=== PATIENT | male | born 1995 | race Caucasian/White ===

== ENCOUNTER 2024-11-21 16:50 | Emergency (ER) | payer SELFPAY ==
--- OUTSIDE RECORDS SUMMARY | 2024-11-21 16:53 | XMS REPORT | Continuity of Care Document ---
Author Name Unknown Address [address] [facility] [address] [place] [address] [facility] Address [address] [facility] [place] [address] Care Team Providers Care Shipping Receiving Clerk Name Role Phone Ryan Cohen Attending Clinician UnavailHéctor Rogers Attending Clinician Unavailable Taz Don Attending Clinician Jimenez Benitez Attending Clinician Marshall Nix Attending Clinician UnavailHamlet Chambers Attending Clinician UnavailTom Bruno Admitting Clinician Unavailable Physician, No Primary or Family Admitting Clinic isac Unavailable Payers Payer Name Policy Type Policy Number Effective Date Expirati on Date Source Allergies, Adverse Reactions, Alerts Allergy Name Allergy Type Status Severity Reaction(s) Onset Date Inactive Date Treating Clinician Comments Source No Known Allergie s DA Active U - 00:00: 00 [facility] No Known Allergie s DA Active U 09-04 00:00: 00 [facility] No Known Allergie s DA Active U 09-22 00:00: 00 [facility] Encounters Start Date/Time End Date/Time Encounter Type Admission Type Attending [facility] Care Department Encounter ID Source 2024-01-27 11:14:00 2024-01-27 12:31:00 Emergency EM Jorge Cohenew [facility] [id number] 38 [facility] 2023-10-19 10:06:00 2023-10-19 13:41:00 Emergency EM Héctor Troy [facility] [id number] 74 [facility] 2023-09-05 06:34:00 2023-09-05 07:45:00 Emergency EM Arian Taz [facility] [id number] 12 [facility] 2023-07-31 02:04:00 2023-07-31 03:20:00 Emergency EM ArianTaz [facility] [id number] 32 [facility] 2023-05-23 12:39:00 2023-05-23 18:15:00 Emergency EM Cohen Ryan [facility] [id number] 83 [facility] 2022-12-07 11:40:00 2022-12-07 11:51:00 Emergency EM SalbadorJulienmichellelidia [facility] [id number] 44 [facility] 2021-12-10 20:38:00 2021-12-10 22:45:00 Emergency EM [facility] [id number] [facility] 2021-12-04 15:27:00 2021-12-04 16:50:00 Emergency EM Hamlet Oscar [facility] [id number] [facility] Results Test Description Test Time Test Comments Results Result Co mments Source COMPREHENSIVE METABOLIC [id number] 11:01:00* Test Item Value Reference Range Interpretation Comme nts SODIUM (test code = NA) 144.0 mmol/L 133-144 N POTASSIUM (test code = K) 3.0 mmol/L 3.5-5.1 L CHLORIDE (test code = CL) 108 mmol/L 98-107 H CARBON DIOXIDE (test code = CO2) 29 mEq/L 20-31 N ANION GAP (test code = GAP) 7.0 GAP calc 4.0-15.0 N GLUCOSE (test code = GLU) 83 MG/DL 70-110 N BLOOD UREA NITROGEN (test code = BUN) 14 MG/DL 7-18 N GLOMERULAR FILTRATION RATE (test code = GFR) 123 estGFR >60 The Glomerular Filtration Rate is a calculated parameterbased on serum Creatinine, patient age and sex. GFR valuesless than 60 mL/min/1.73 square meters are indicative ofChronic Kidney Disease. Values less than 15 mL/min/1.73square meters indicate Kidney failure. The calculation forGFR is based on the CKD-EPI (2020) calculation. This formulais race indifferent and is the recommended formula for GFRby the National Kidney Foundation for Adults.The GFR will not calculate if the sex is unknown or if thepatient's age is <18 years. CREATININE (test code = CREAT) 0.79 mg/dL 0.55-1.30 N TOTAL PROTEIN (test code = PROT) 6.6 G/DL 6.4-8.2 N ALBUMIN (test code = ALB) 4.3 G/DL 3.2-4.8 N ALBUMIN/GLOBULIN RATIO (test code = A/G) 1.9 RATIO 1.2-2.2 N CALCIUM (test code = CA) 9.3 MG/DL 8.7-10.4 N BILIRUBIN TOTAL (test code = BILT) 0.40 MG/DL 0.00-1.00 N BILIRUBIN DIRECT (test code = BILD) <0.10 MG/DL 0.10-0.30 L BILIRUBIN INDIRECT (test code = BILIND) CALC ADALI MG/DL 0.2-1.3 L SGOT/AST (test code = AST) 20 Unit/L 8-33.9 N SGPT/ALT (test code = ALT) 15 Unit/L 10-49 N ALKALINE PHOSPHATASE TOTAL (test code = ALKP) 54 Unit/L 45-117 N INDEX HEMOLYSIS (test code = HEMINDEX) 1 NORMAL <10 MG Index/DL See_Comment [Automated message] The system which generated this result transmitted reference range: 1 NORMAL. The reference range was not used to interpret this result as normal/abnormal. INDEX ICTERIC (test code = ICTINDEX) NEGATIVE Index/DL See_Comment [Automated message] The system which generated this result transmitted reference range: 1 NORMAL. The reference range was not used to interpret this result as normal/abnormal. INDEX LIPEMIA (test code = LIPINDEX) NEGATIVE Index/DL See_Comment [Automated message] The system which generated this result transmitted reference range: 1 NORMAL. The reference range was not used to interpret this result as normal/abnormal. TROP-I HIGH [id number] 10:57:00* Test Item Value Reference Range Interpretation Comme nts TROP-I HIGH SENSITIVITY (test code = TROPIHS) < 3 ng/L 0-54 N 99th Percentile Upper Reference Limit (URL):Females: 34 ng/LMales: 54 ng/L In order to distinguish acute elevations of high sensitivitytroponin from other clinical conditions, the FourthUniversal Definition of Myocardial Infarction stressesclinical assessment and the demonstration of a riseand/or fall in serial troponin results above the URL. These results were obtained using [employer] IM TnIHreagent. Results from different methodologies should not becompared to one another as quantitative results and URLs mayvary by method. NOTE: a bias of less than or equal to 10% may occur forthese substances: Biotin (3500 ng/mL) Cholesterol (500 mg/dL)Protein Albumin (6 g/dL)Protein Gamma Globulin (2.5 g/dL)Total Protein (12 g/dL) - XR CHEST 2 [id number] 10:47:00 [facility] : 1995 Sex: MFAX: Hilary Suarez Floyd: E St: REG FAX: Tom Epperson MD [phone] [id number] EXAMS: CPT CODE: [id number] XR CHEST 2 V [id number] PROCEDURE INFORMATION: Exam: XR Chest Exam date and time: 10/19/2023 10:35 AM Age: 28 years old Clinical indication: Chest pain TECHNIQUE: Imaging protocol: Radiologic exam of the chest. Views: 2 views. PA and Lateral COMPARISON: DX XR CHEST 1V 09/05/2023 6:59 AM FINDINGS: Lungs: The lungs are clear. Pleural spaces: No pleural effusion. No pneumothorax. Heart/Mediastinum: Cardiomediastinal silhouette is normal in size. Bones/joints: No acute bony finding. IMPRESSION: No evidence for acute cardiopulmonary disease. at 1047 Reported and signed by: Obinna Lou MD CC: Hilary Suarez Dictated Date/Time: 10/19/2023 (3018)Technologist: Adele Vuong Transcribed Date/Time: 10/19/2023 (8346) By: [email or web address] Orig Print D/T: S: 10/19/2023 (2653) MEAGAN Bennett NAME: LACY SMITH [address] PHYS: Hilary [place], [place] [address] : 1995 AGE: 28 SEX: M LOC: EDMUNDO PHONE #: [phone] EXAM DATE: 10/19/2023 STATUS: REG ER FAX #: [phone] RAD NO: DC Dt: PAGE 1 Signed ReportCBC W/AUTO [id number] 10:46:00* Test Item Value Reference Range Interpretation Comme nts WHITE BLOOD CELL (test code = WBC) 10.3 K/mm3 4.1-12.1 N RED BLOOD CELL (test code = RBC) 4.67 M/mm3 3.8-5.5 N HEMOGLOBIN (test code = HGB) 14.0 G/DL 10.6-15.8 N HEMATOCRIT (test code = HCT) 40.4 % 31.8-47.4 N MEAN CELL VOLUME (test code = MCV) 86.5 fL 80.1-101.1 N MEAN CELL HGB (test code = MCH) 30.0 pg 25.3-35.3 N MEAN CELL HGB CONCETRATION ( test code = MCHC) 34.7 G/DL 32.7-35.1 N RED CELL DISTRIBUTION WIDTH (test code = RDW) 12.6 % 12.2-16.4 N RED CELL DISTRIBUTION WIDTH (test code = RDW-SD) 39.6 fL 35.1-43.9 N PLATELET COUNT (test code = PLT) 318 K/mm3 155-337 N MEAN PLATELET VOLUME (test c ode = MPV) 9.8 fL 7.6-10.4 N GRANULOCYTE % (test code = GR%) 70.9 % 37.8-82.6 N IMMATURE GRANULOCYTE % (test code = IG%) 0.2 % 0.0-2.0 N LYMPHOCYTE % (test code = LY%) 22.8 % 14.1-45.4 N MONOCYTE % (test code = MO%) 4.4 % 2.5-11.7 N EOSINOPHIL % (test code = EO%) 1.0 % 0.0-6.2 N BASOPHIL % (test code = BA%) 0.7 % 0.0-2.6 N NUCLEATED RBC % (test code = NRBC%) 0.0 /100WBC% 0.0-1.0 N GRANULOCYTE # (test code = GR#) 7.30 k/mm3 2.0-13.7 N IMMATURE GRANULOCYTE # (test code = IG#) 0.02 K/mm3 0.00-0.03 N LYMPHOCYTE # (test code = LY#) 2.35 K/mm3 0.6-3.8 N MONOCYTE # (test code = MO#) 0.45 K/mm3 0.11-0.59 N EOSINOPHIL # (test code = EO#) 0.10 K/mm3 0.0-0.4 N BASOPHIL # (test code = BA#) 0.07 K/mm3 0.0-0.1 N NUCLEATED RBC # (test code = NRBC#) 0.00 K/mm3 0.00-0.05 N - XR CHEST 1 [id number] 07:26:00 [facility]: JASON SMITHZulma CONTRERAS : 1995 Sex: MFAX: Aicha Mathur NP Floyd: E St: PRE Patient Name: DAVID SMITHSHARON CONTRERAS Unit No: [id number] EXAMS: CPT CODE: [id number] XR CHEST 1 V [id number] PROCEDURE INFORMATION: Exam: XR Chest Exam date and time: 09/05/2023 6:59 AM Age: 28 years old Clinical indication: Chest pain TECHNIQUE: Imaging protocol: Radiologic exam of [facility]. Views: 1 view. COMPARISON: DX XR CHEST 1V 09/06/2016 7:19 PM FINDINGS: Tubes, catheters and devices: None. Lungs: The lungs appear clear. Pleural spaces: No pleural effusion. No pneumothorax. Heart/Mediastinum: Mediastinum and dani appear unremarkable. Bones/joints: No acute bony abnormalityidentified. IMPRESSION: No evidence for an acute cardiopulmonary process. at 0726 Reported and signed by: Enzo Wilkins MD CC: Aicha Mathur [employer] Dictated Date/Time: 09/05/2023 (725)Technologist: LEXIE Pederson(R) Transcribed Date/Time: 09/05/2023 (725) By: [email or web address] Orig Print D/T: S: 09/05/2023 (725) [facility] NAME: LACY SMITH [address] [place] [address] Bl PHYS: Aicha Lopez NP [place], [place] [address] : 1995 AGE: 28 SEX: M LOC: B.ERS PHONE #: [phone] EXAM DATE: 09/05/2023 STATUS: PRE ER FAX #: [phone] RAD NO: DC Dt: PAGE 1 Signed Report Notes Date/Time Note Provider Source 2024-01-27 12:28:00 [facility] ([facility]) EMERGENCY PROVIDER REPORT REPORT#:[id number] REPORT STATUS: Signed DATE:01/27/24 TIME: 8 PATIENT: LACY SMITH UNIT #: [id number] ROOM/BED: : 94 AGE: 28 SEX:M PCP PHYS: Tom Null MD SERVICE AUTHOR: Nirmal Mars APRNNP REP SRV REP SRV TM: 1114 * ALL edits or amendments must be made on the electronic/computer document * Nirmal Mars 01/27/24 1228: HPI-General Illness Free Text HPI Notes Free Text HPI Notes 28-year-old male presents the emergency room with complaints of hemorrhoid pain. Patient denies fever, bleeding, nausea, vomiting or any other symptoms at this time. Patient states that the pain is so severe that he cannot sleep. Patient denies any other pertinent medical history at this time. General Confirmed Patient Yes Initial Greet Date/Time 01/27/24 1114 Presentation Chief Complaint Hemorrhoids Review of Systems ROS Statements All systems rev neg except as marked. Complete sys rev neg except as marked. Free Text ROS Notes Free Text ROS Notes Rectal/hemorrhoid pain Past Medical History - Adult Stated Complaint hemmorhoids Allergies Coded Allergies: No Known Allergies (10/19/23) Home Medications Active Scripts MECLIZINE 25 MG PO TID PRN PRN VERTIGO/DIZZINESS MECLIZINE 25 MG PO TID PRN PRN VERTIGO/DIZZINESS #60 TABS Prov: 05/23/23 cloNIDine 0.1 MG PO Q8H 2 Days #6 TABS Prov: 10/19/23 AMOXICILLIN (AMOXIL) 875 MG PO Q12HR 7 Days #14 TABS Prov: 12/07/22 hydrOXYzine HCL (ATARAX) 50 MG PO TID PRN PRN ANXIETY hydrOXYzine HCL (ATARAX) 50 MG PO TID PRN PRN ANXIETY #20 TABS Prov: 12/04/21 Calculated Suicide Risk (nurs) No risk Additional Medical History none Past Surgical History: Reports: Tonsillectomy. Additional Surgical History none Drug Use Denies recreational drugs Smoking status for patients 13 years old or older: Current every day smoker Physical Exam Vital Signs Vital Signs First Documented: Result Date Time Pulse Ox 100 01/26 1115 B/P 106/67 01/26 1115 B/P Mean 80 01/26 1115 O2 Delivery Room air 01/26 111 Temp 98.2 01/26 1115 Pulse 70 01/26 1115 Resp 16 01/26 111 Last Documented: Result Date Time Pulse Ox 100 01/26 1115 B/P 106/67 01/26 1115 B/P Mean 80 01/26 1115 O2 Delivery Room air 01/26 1115 Temp 98.2 01/26 1115 Pulse 70 01/26 1115 Resp 16 01/26 1115 Review of Vital Signs Reviewed, Vital signs normal Free Text PE Notes Free Text PE Notes General/constitutional: Awake, alert, no acute distress, well appearing, well- developed, well-hydrated, cooperative, nontoxic appearing Head: Atraumatic, normocephalic Eyes: Atraumatic, PERRL, EOMI Ears/nose/throat: Atraumatic, airway patent, mucous membranes moist, pharynx pink and moist Neck: Atraumatic, supple, full range of motion, no swelling, nontender Respiratory/chest: Atraumatic, breath sounds normal, breath sounds equal bilaterally, no respiratory distress Cardiovascular: Heart rate normal, regular rhythm, peripheral circulation intact Abdomen/GI: Atraumatic, soft, nontender, no distention Rectal: Exam chaperoned by JUDD Zaragoza: Approximate 4 cm diameter outer hemorrhoid , no sign of bleeding, no sign of thrombosis, soft, painful to the touch Back: Atraumatic, inspection normal Upper extremity: Atraumatic, inspection normal, full range of motion Lower extremity: Atraumatic, inspection normal, full range of motion Skin: Atraumatic, color normal, no rash, warm, dry, intact Neurologic: Oriented x 3, speech normal, no motor deficits, no sensory deficits Re-Evaluation MDM Free Text MDM Notes Free Text MDM Notes Number and complexity of problems: Low complexity:28-year-old male presents the emergency room with complaints of hemorrhoid pain. Patient denies fever, bleeding, nausea, vomiting or any other symptoms at this time. Patient states that the pain is so severe that he cannot sleep. Patient denies any other pertinent medical history at this time. On exam, approximate 4 cm outer hemorrhoid with no bleeding at this time. Patient will be discharged with medications and follow-up to colorectal surgery for further evaluation and management. Patient understands discharge plan and agrees without objection. Differential diagnosis considered but not limited to: [ ] Hemorrhoids, abscess, cellulitis, prolapsed rectum MDM data: [ ] External documents reviewed: [ ] My EKG interpretation: [N/A] My CT interpretation: [N/A] My x-ray interpretation: [N/A] My ultrasound interpretation: [N/A] Labs reviewed by me: N/A Decision rules/scores evaluated: [N/A] Discussed with: [N/A] Consider admission for: [N/A] Treatment and disposition: [ ] Discussed results with patient, advised when to return to ED, discussed patient education, follow up, prescriptions, and med compliance. Patient verbalizes understanding of all instructions. Code status: Full ED course: Patient is well-appearing, nontoxic, tolerating p.o. Discussed treatment plan, follow-up recommendations as well as return precautions. Patient verbalized understanding and agrees with plan. ED Course Medication(s) Ordered Medication(s) Ordered: Central Nervous System Agents Sig/Elena Start time Last Medication Dose Route Stop Time Status Admin Hydrocodone Bitart/ 1 TAB X1ED STA 01/26 1203 DC 01/26 Acetaminophen PO 01/26 1204 1205 Patient Discharge Departure Vital Signs/Condition Vital Signs First Documented: Result Date Time Pulse Ox 100 01/26 1115 B/P 106/67 01/26 1115 B/P Mean 80 01/26 1115 O2 Delivery Room air 01/26 111 Temp 98.2 01/26 111 Pulse 70 01/26 1115 Resp 16 01/26 1115 Last Documented: Result Date Time Pulse Ox 100 01/26 1115 B/P 106/67 01/26 1115 B/P Mean 80 01/26 1115 O2 Delivery Room air 01/26 111 Temp 98.2 01/26 111 Pulse 70 01/26 111 Resp 16 01/26 111 All vital signs available at the time of this entry have been reviewed. Condition Stable Clinical Impression Clinical Impression Primary Impression: Rectal pain Secondary Impressions: Hemorrhoids Disposition Decision Discharge )( Discharged to Home Yes )( Time 1231 )( Date 01/27/24 Discharge/Care Plan Counseled Regarding Diagnosis, Prescriptions, Need for follow-up, When to return to ED (Auto) Prescriptions Current Visit Scripts DOCUSATE SODIUM (COLACE) 100 MG PO DAILY 14 Days #14 CAPS HYDROCORTISONE (ANUSOL-HC 2.5%) 1 APPLIC RECTAL BID PRN PRN Hemorrhoids 14 Days #30 GM UNTIL RESOLVED traMADol (ULTRAM) 50 MG PO Q6H PRN PRN ACUTE PAIN traMADol (ULTRAM) 50 MG PO Q6H PRN PRN ACUTE PAIN #15 TABS Prescriptions Reviewed Risks, Benefits Patient Instructions ED Hemorrhoids Additional Instructions As we discussed, use medications as prescribed and call Monday morning to make an appointment with a colorectal surgeon for further evaluation and management or possible surgery. Return to the emergency room with severely worsening symptoms including fever, nausea, vomiting, rectal bleeding, or other acutely worsening symptoms as they develop. Please return for chest pain, shortness of breath, feeling like you may pass out, symptoms worsened by exertion, leg swelling, any signs of infection or any other new or concerning symptoms. Please return if you cannot receive follow-up in the next 1 to 2 days. Please note that only your emergent findings were reviewed today. You should contact medical records to get a full report to review in detail with your primary care doctor. Many incidental findings will need outpatient follow-up. Departure Forms [place] PCP LIST Discharge Note I have spoken with the patient and/or caregivers. I have explained the patient's condition, diagnoses and treatment plan based on the information available to me at this time. I have answered the patient's and/or caregiver's questions and addressed any concerns. The patient and/or caregivers have as good an understanding of the patient's diagnosis, condition and treatment plan as can be expected at this point. The vital signs have been stable. The patient's condition is stable and appropriate for discharge from the emergency department. The patient will pursue further outpatient evaluation with the primary care physician or other designated or consulting physician as outlined in the discharge instructions. The patient and/or caregivers are agreeable to this plan of care and follow-up instructions have been explained in detail. The patient and/or caregivers have received these instructions in written format and have expressed an understanding of the discharge instructions. The patient and/or caregivers are aware that any significant change in condition or worsening of symptoms should prompt an immediate return to this or the closest emergency department or a call to 911. Ryan Cohen 01/29/24 1656: Re-Evaluation MDM Free Text MDM Notes Additional Text Pt seen and eval with midlevel Agree with chart as documented unless notes otherwise by me Pt non toxic appearing, tolerating PO Stable for dispo home with closed f/u and return precautions Pt updated and agreeable with plan of care Patient Discharge Departure Discharge/Care Plan Referrals Provider Referral: Sophy Mora MD Notes: Colorectal surgery Address: [address] [place] [address] [address] [place] [address] Resource Referral: [facility] Address: [address] [place] [address] Supervising Physician Note MidLv/Doc Saw Pt 2 I performed a substantive part of the MDM during the patient's E/M visit. I personally made or approved the documented management plan and acknowledge its risk of complications. My (ECG/X-Ray/US/CT) interpretation []. Management/test interpretation discussed with []. at 1616 at 1655 RPT #:[id number] END OF REPORT [facility] 2023-10-19 13:28:00 [facility] ([facility]) EMERGENCY PROVIDER REPORT REPORT#:[id number] REPORT STATUS: Signed DATE:10/19/23 TIME: 1328 PATIENT: LACY SMITH UNIT #: [id number] ROOM/BED: AGE: 28 SEX: M PCP PHYS: Tom Null MD SERVICE AUTHOR: Hilary Suarez APRNNP * ALL edits or amendments must be made on the electronic/computer document * Hilary Suarez 10/19/23 1328: HPI-General Illness Free Text HPI Notes Free Text HPI Notes Patient is a 28-year-old male presenting to the ER for shortness of breath and chest pain, full body aches.. Patient reports he stopped using fentanyl a day and a half ago and the symptoms started then. Patient does report he is able to tolerate fluids and food. No abdominal pain, vomiting, diarrhea, fevers. Patient has no seizure-like activity. General Confirmed Patient Yes Initial Greet Date/Time 10/19/23 1012 Presentation Chief Complaint opiod withdrawal Review of Systems ROS Statements All systems rev neg except as marked. Complete sys rev neg except as marked. Free Text ROS Notes Free Text ROS Notes All negative with the exception of what is noted in the HPI Past Medical History - Adult Stated Complaint FEEL LIKE W/D OPIATES AND DRUGS,SOB,CP Allergies Coded Allergies: No Known Allergies (10/19/23) Home Medications Active Scripts MECLIZINE 25 MG PO TID PRN PRN VERTIGO/DIZZINESS MECLIZINE 25 MG PO TID PRN PRN VERTIGO/DIZZINESS #60 TABS Prov: 05/23/23 AMOXICILLIN (AMOXIL) 875 MG PO Q12HR 7 Days #14 TABS Prov: 12/07/22 hydrOXYzine HCL (ATARAX) 50 MG PO TID PRN PRN ANXIETY hydrOXYzine HCL (ATARAX) 50 MG PO TID PRN PRN ANXIETY #20 TABS Prov: 12/04/21 Additional Medical History none Past Surgical History: Reports: Tonsillectomy. Additional Surgical History none Drug Use Denies recreational drugs Smoking status for patients 13 years old or older: Current every day smoker Physical Exam Vital Signs Vital Signs First Documented: Result Date Time Pulse Ox 100 10/18 1006 B/P 142/89 10/18 1006 B/P Mean 106 10/18 1006 O2 Delivery Room air 10/18 1006 Temp 98.1 10/18 1006 Pulse 94 10/18 1006 Resp 18 10/18 1006 Last Documented: Result Date Time Pulse Ox 98 10/18 1236 B/P 125/76 10/18 1236 B/P Mean 92 10/18 1236 Temp 98.4 10/18 1236 Pulse 98 10/18 1236 Resp 20 10/18 1236 O2 Delivery Room air 10/18 1006 Review of Vital Signs Reviewed Physical Exam General/Const General/Const Awake, Alert, No acute distress, Well appearing, Well developed , Well hydrated, Well nourished, Cooperative, Not toxic appearing Ears/Nose/Throat Ears/Nose/Throat Atraumatic, Airway patent, Mucous membranes moist, Pharynx NL MS Neck Neck Atraumatic, Supple, No meningismus, Full range of motion, No adenopathy, No swelling, Non-tender Resp/Chest Respiratory/Chest Atraumatic, Breath sounds NL, Breath sounds = bilat, No respiratory distress, No rales, No rhonchi, No wheezing, No retractions, No stridor, No chest tenderness, No chest wall deformity, No crepitus Cardiovascular Cardiovascular Heart rate NL, Regular rhythm, Heart sounds NL Abdomen/GI Abdomen/GI Atraumatic, Soft, Non-tender, McBurney's non-tender, No guarding, No rebound, BS normoactive, No distention Skin Skin Atraumatic, Color NL, No rash, Warm Neurologic Neurologic Oriented X3, Speech NL, No motor deficits, No sensory deficits Interpretation Diagnostics Lab Results Interpretation Results Laboratory Tests 10/19/23 1027: [Embedded Image Not Available] Laboratory Tests: 10/18 10/18 10/18 1131 1027 1027 Chemistry Sodium (133 - 144 mmol/L) 144.0 Potassium (3.5 - 5.1 mmol/L) 3.0 L Chloride (98 - 107 mmol/L) 108 H Carbon Dioxide (20 - 31 mEq/L) 29 Anion Gap (4.0 - 15.0 GAP calc) 7.0 BUN (7 - 18 MG/DL) 14 Creatinine (0.55 - 1.30 mg/dL) 0.79 Glomerular Filtr Rate (>60 estGFR) 123 Glucose (70 - 110 MG/DL) 83 Calcium (8.7 - 10.4 MG/DL) 9.3 Total Bilirubin (0.00 - 1.00 MG/DL) 0.40 Direct Bilirubin (0.10 - 0.30 MG/DL) <0.10 L Indirect Bilirubin (0.2 - 1.3 MG/DL) CALC ADALI L AST (8 - 33.9 Unit/L) 20 ALT (10 - 49 Unit/L) 15 Total Alk Phosphatase (45 - 117 Unit/L) 54 Troponin I High Sens (0 - 54 ng/L) < 3 < 3 Total Protein (6.4 - 8.2 G/DL) 6.6 Albumin (3.2 - 4.8 G/DL) 4.3 Albumin/Globulin Ratio (1.2 - 2.2 RATIO) 1.9 Specimen Appearance (1 NORMAL Index/DL) NEGATIVE Specimen Hemolysis (1 NORMAL Index/DL) 1 NORMAL <10 MG Hematology WBC (4.1 - 12.1 K/mm3) 10.3 RBC (3.8 - 5.5 M/mm3) 4.67 Hgb (10.6 - 15.8 G/DL) 14.0 Hct (31.8 - 47.4 %) 40.4 MCV (80.1 - 101.1 fL) 86.5 MCH (25.3 - 35.3 pg) 30.0 MCHC (32.7 - 35.1 G/DL) 34.7 RDW (12.2 - 16.4 %) 12.6 Plt Count (155 - 337 K/mm3) 318 MPV (7.6 - 10.4 fL) 9.8 Gran % (37.8 - 82.6 %) 70.9 Lymph % (Auto) (14.1 - 45.4 %) 22.8 Whiteside % (Auto) (2.5 - 11.7 %) 4.4 Eos % (Auto) (0.0 - 6.2 %) 1.0 Baso % (Auto) (0.0 - 2.6 %) 0.7 Gran # (2.0 - 13.7 k/mm3) 7.30 Lymph # (Auto) (0.6 - 3.8 K/mm3) 2.35 Whiteside # (Auto) (0.11 - 0.59 K/mm3) 0.45 Eos # (Auto) (0.0 - 0.4 K/mm3) 0.10 Baso # (Auto) (0.0 - 0.1 K/mm3) 0.07 Immature Gran % (0.0 - 2.0 %) 0.2 Nucleated RBC % (0.0 - 1.0 /100WBC%) 0.0 Nucleated RBCs # (0.00 - 0.05 K/mm3) 0.00 Recent Impressions: RADIOLOGY - XR CHEST 2 V 10/18 1035 Report Impression - Status: SIGNED Entered: 10/19/2023 1048 IMPRESSION: No evidence for acute cardiopulmonary disease. Impression By: [email or web address] - Obinna Lou MD Re-Evaluation MDM Free Text MDM Notes Free Text MDM Notes Number and complexity: [Moderate complexity] Differential diagnosis considered but not limited to: [Opiate withdrawal, ACS, pneumonia, sepsis, URI, CHRISTIE] MDM data: [ ] External documents reviewed: [N/A] My EKG interpretation: [N/A] My CT interpretation: [N/A] My x-ray interpretation: [N/A] My ultrasound interpretation: [N/A] Labs reviewed by me: [N/A] Decision rules/scores evaluated: [N/A] Discussed with: [N/A] Consider admission for: [N/A] Treatment and disposition:[Patient is alert and oriented, nontoxic. After fluids patient is resting and sleeping in the ER waiting area. When waking up patient reports he only feels slightly better. Reports he is still achy but denies any chest pain or shortness of breath. Vital signs are normal. Patient received Tylenol and IV fluids in the ER. Labs are unremarkable. X without findings. EKG sinus rhythm. Troponins negative x 2. At this time patient be discharged home. He denies any suicidal or homicidal ideation. Clonidine to go home with for the patient. Reviewed thoroughly. Collaborate with Dr. Troy on this patient's plan of care] Code status: Full ED course: Patient is a well-appearing, nontoxic, tolerating p.o. Discussed with [patient]treatment plan, follow-up, recommendations as well as return precautions. Patient verbalizes understanding and agrees with plan ED Course Medication(s) Ordered Medication(s) Ordered: Central Nervous System Agents Sig/Elena Start time Last Medication Dose Route Stop Time Status Admin Acetaminophen 1,000 MG X1ED STA 10/18 1013 DC 07/ PO 10/18 1014 1034 Aspirin 325 MG X1ED STA 10/18 1013 DC 07/ PO 10/18 1014 1034 Electrolytic, Caloric, And Juliann Sig/Elena Start time Last Medication Dose Route Stop Time Status Admin Potassium Chloride 40 MEQ X1ED STA 10/18 1321 DC PO 10/18 1322 Sodium Chloride 1,000 ML X1ED STA 10/18 1013 DC 07/ IV 10/18 1014 1034 Patient Discharge Departure Vital Signs/Condition Vital Signs First Documented: Result Date Time Pulse Ox 100 10/18 1006 B/P 142/89 10/18 1006 B/P Mean 106 10/18 1006 O2 Delivery Room air 10/18 1006 Temp 98.1 10/18 1006 Pulse 94 10/18 1006 Resp 18 10/18 1006 Last Documented: Result Date Time Pulse Ox 98 10/18 1236 B/P 125/76 10/18 1236 B/P Mean 92 10/18 1236 Temp 98.4 10/18 1236 Pulse 98 10/18 1236 Resp 20 10/18 1236 O2 Delivery Room air 10/18 1006 All vital signs available at the time of this entry have been reviewed. Condition Stable, Improved Clinical Impression Clinical Impression Primary Impression: Opioid use Secondary Impressions: Chest pain, Shortness of breath Time of Impression 1332 Disposition Decision Discharge )( Discharged to Home Yes )( Time 1335 )( Date 10/19/23 Discharge/Care Plan Counseled Regarding Diagnosis, Lab results, Imaging studies, Medication changes, Prescriptions, Need for follow-up, When to return to ED (Auto) Prescriptions Current Visit Scripts cloNIDine 0.1 MG PO Q8H 2 Days #6 TABS Prescriptions Reviewed Risks, Benefits, Alternative treatment Patient Instructions Clonidine Oral Tablet, ED Opioid Withdrawal Additional Instructions Your lab work today was normal. Your EKG was normal. Your x-ray of your chest was normal. Your vital signs are normal. At this time we will discharge you home with close follow-up with your PCP. If you not have an a list [facility] for you to follow-up with. I have sent you medication called clonidine which may help with your withdrawal symptoms. I printed you education on opioid withdrawal and clonidine. Increase your oral hydration rest frequently, stay in the cool air, sleep at normal intervals, eat a balanced diet. Come back to the ER if you have significant chest pain, shortness of breath, persistent vomiting, muscle cramps, inability to urinate, thoughts of wanting to kill yourself or kill anyone else. Discharge Note I have spoken with the patient and/or caregivers. I have explained the patient's condition, diagnoses and treatment plan based on the information available to me at this time. I have answered the patient's and/or caregiver's questions and addressed any concerns. The patient and/or caregivers have as good an understanding of the patient's diagnosis, condition and treatment plan as can be expected at this point. The vital signs have been stable. The patient's condition is stable and appropriate for discharge from the emergency department. The patient will pursue further outpatient evaluation with the primary care physician or other designated or consulting physician as outlined in the discharge instructions. The patient and/or caregivers are agreeable to this plan of care and follow-up instructions have been explained in detail. The patient and/or caregivers have received these instructions in written format and have expressed an understanding of the discharge instructions. The patient and/or caregivers are aware that any significant change in condition or worsening of symptoms should prompt an immediate return to this or the closest emergency department or a call to 911. Héctor Troy 10/25/23 0538: Patient Discharge Departure Discharge/Care Plan Referrals [facility] [place] [address] Supervising Physician Note MidLv Saw Pt Alone Level 2: I was consulted about this patient s care by the XOCHITL, but did not directly evaluate the patient. I agree with the plan of care. at [phone] at 6144 RPT #:[id number] END OF REPORT [facility] 2023-10-19 10:14:00 [facility] ([facility]) EMERGENCY PROVIDER REPORT REPORT#:[id number] REPORT STATUS: Signed DATE:10/19/23 TIME: 1014 PATIENT: LACY SMITH UNIT #: [id number] ROOM/BED: AGE: 28 SEX: M PCP PHYS: Tom Null MD SERVICE DT: AUTHOR: Hilary Suarez * ALL edits or amendments must be made on the electronic/computer document * Provider in Triage - Adult Provider in Triage Initial Greet Date/Time 10/19/23 1012 Greet Note I have greeted and performed a focused rapid initial assessment of this patient. A comprehensive ED assessment and evaluation of the patient, analysis of all test results, and completion of the medical decision-making process will be conducted by additional ED providers. MSE Not Complete The medical screening exam is not complete. Further evaluation and/or treatment is required. The patient will be re-directed to the emergency department. Free Text PIT Notes Free Text PIT Notes Patient is a 28-year-old male presenting to the ER for shortness of breath and chest pain. Patient reports he stopped using fentanyl a day and a half ago and the symptoms started then. PMH-Provider in Triage Stated Complaint FEEL LIKE W/D OPIATES AND DRUGS,SOB,CP Allergies Coded Allergies: No Known Allergies (10/19/23) Home Medications Active Scripts MECLIZINE 25 MG PO TID PRN PRN VERTIGO/DIZZINESS MECLIZINE 25 MG PO TID PRN PRN VERTIGO/DIZZINESS #60 TABS Prov: 05/23/23 AMOXICILLIN (AMOXIL) 875 MG PO Q12HR 7 Days #14 TABS Prov: 12/07/22 hydrOXYzine HCL (ATARAX) 50 MG PO TID PRN PRN ANXIETY hydrOXYzine HCL (ATARAX) 50 MG PO TID PRN PRN ANXIETY #20 TABS Prov: 12/04/21 Additional Medical History none Past Surgical History: Reports: Tonsillectomy. Additional Surgical History none Patient History FATHER Condition: Family History: Unknown MOTHER Condition: Family History: Unknown Drug Use Denies recreational drugs at 1015 RPT #:[id number] END OF REPORT [facility] 2023-09-05 07:39:00 [facility] ([facility]) EMERGENCY PROVIDER REPORT REPORT#:[id number] REPORT STATUS: Signed DATE:09/05/23 TIME: 0739 PATIENT: LACY SMITH UNIT #: [id number] ROOM/BED: AGE: 28 SEX: M PCP PHYS: Tom Null MD SERVICE AUTHOR: Taz Don DO * ALL edits or amendments must be made on the electronic/computer document * HPI-Chest Pain 40 and Over General Initial Greet Date/Time 09/05/23 0650 Provider in Triage HPI Chief Complaint Chest pain PE General/Const No acute distress Respiratory/Chest No respiratory distress Presentation Chief Complaint Chest pain Sudden in Onset? No Free Text HPI Notes Free Text HPI Notes Patient presents with a chief complaint of ongoing chest pain. States he has been having the same pain for the last 2 years. Patient denies any recent injury. Has no known medical history. Takes no prescription medications. However patient did states that he needs Valium? Patient was unable to tell me why he came in today if pain has been ongoing for the last 2 years. Risk-Chest Pain 40 and Over Risk Stratification )( Coronary Artery Disease Risk factors reviewed )( Thoracic Aortic Dissection Risk factors reviewed )( Pulmonary Embolism Risk factors reviewed Review of Systems ROS Statements All systems rev neg except as marked. Focused Review of Systems Cardiovascular Reports: Chest pain. Past Medical History - Adult Stated Complaint CHEST PAIN Allergies Coded Allergies: No Known Allergies (09/05/23) Home Medications Active Scripts MECLIZINE 25 MG PO TID PRN PRN VERTIGO/DIZZINESS MECLIZINE 25 MG PO TID PRN PRN VERTIGO/DIZZINESS #60 TABS Prov: 05/23/23 AMOXICILLIN (AMOXIL) 875 MG PO Q12HR 7 Days #14 TABS Prov: 12/07/22 hydrOXYzine HCL (ATARAX) 50 MG PO TID PRN PRN ANXIETY hydrOXYzine HCL (ATARAX) 50 MG PO TID PRN PRN ANXIETY #20 TABS Prov: 12/04/21 Additional Medical History none Past Surgical History: Reports: Tonsillectomy. Additional Surgical History none Drug Use Denies recreational drugs Smoking status for patients 13 years old or older: Current every day smoker Physical Exam Vital Signs Vital Signs First Documented: Result Date Time Pulse Ox 100 09/04 0639 B/P 111/75 09/04 0639 B/P Mean 87 09/04 0639 O2 Delivery Room air 09/04 0639 Temp 97.5 09/04 0639 Pulse 95 09/04 0639 Resp 14 09/04 0639 Last Documented: Result Date Time Pulse Ox 100 09/04 0730 B/P 121/73 09/04 0730 B/P Mean 91 09/04 0730 Pulse 92 09/04 0730 O2 Delivery Room air 09/04 0639 Temp 97.5 09/04 0639 Resp 14 09/04 0639 Review of Vital Signs Reviewed Basic Physical Exam Basic PE HEAD: Atraumatic/NC, EYES: PERRL, conj clear, ENT: Membranes moist, NECK: Supple, EXT: No gross abnormality, SKIN: No rashes, warm/dry, NEURO: alert oriented, NEURO: gross movement NL Interpretation Diagnostics Lab Results Interpretation Results Recent Impressions: RADIOLOGY - XR CHEST 1 V 09/04 658 Report Impression - Status: SIGNED Entered: 09/05/2023725 IMPRESSION: No evidence for an acute cardiopulmonary process. Impression By: [email or web address] - Enzo Wilkins MD Re-Evaluation MDM Free Text MDM Notes Additional Text Medical decision making Number and complexity of problems multiple Differential diagnosis: MDM data External documents reviewed: My EKG interpretation normal sinus rhythm no acute ischemic changes rate of 92 time is [address] interpretation N/A My x-ray interpretation N/A My ultrasound interpretation: N/A Labs reviewed by me; Decision rules/scores evaluated Discussed with; N/A I considered admission for: N/A Treatment and disposition: Patient refused workup. Will recommend follow-up as outpatient. ED course: Patient is refusing workup. Told nurse he will not allow blood draw. Shared decision making: Discussed discharge follow-up and return instructions. CODE STATUS: Full code ED Course Medication(s) Ordered Medication(s) Ordered: Central Nervous System Agents Sig/Elena Start time Last Medication Dose Route Stop Time Status Admin Aspirin 325 MG X1ED STA 09/04 0731 DC PO 09/04 0732 Aspirin 325 MG X1ED STA 09/04 0656 CAN PO 09/04 0657 Patient Discharge Departure Vital Signs/Condition Vital Signs First Documented: Result Date Time Pulse Ox 100 09/04 0639 B/P 111/75 09/04 0639 B/P Mean 87 09/04 0539 O2 Delivery Room air 09/04 638 Temp 97.5 09/04 638 Pulse 95 09/04 0539 Resp 14 09/04 638 Last Documented: Result Date Time Pulse Ox 100 09/04 729 B/P 121/73 09/04 0730 B/P Mean 91 09/04 07 Pulse 92 09/04 729 O2 Delivery Room air 09/04 638 Temp 97.5 09/04 0539 Resp 14 09/04 638 All vital signs available at the time of this entry have been reviewed. Clinical Impression Clinical Impression Primary Impression: Chest pain Disposition Decision Discharge )( Discharged to Home Yes )( Time 07 )( Date 09/05/23 Discharge/Care Plan Patient Instructions ED Chest Pain, Uncertain Cause [facility]errals [facility] Address: [address] [place] [address] [place] [address] Discharge Note I have spoken with the patient and/or caregivers. I have explained the patient's condition, diagnoses and treatment plan based on the information available to me at this time. I have answered the patient's and/or caregiver's questions and addressed any concerns. The patient and/or caregivers have as good an understanding of the patient's diagnosis, condition and treatment plan as can be expected at this point. The vital signs have been stable. The patient's condition is stable and appropriate for discharge from the emergency department. The patient will pursue further outpatient evaluation with the primary care physician or other designated or consulting physician as outlined in the discharge instructions. The patient and/or caregivers are agreeable to this plan of care and follow-up instructions have been explained in detail. The patient and/or caregivers have received these instructions in written format and have expressed an understanding of the discharge instructions. The patient and/or caregivers are aware that any significant change in condition or worsening of symptoms should prompt an immediate return to this or the closest emergency department or a call to 911. at 1017 RPT #:[id number] END OF REPORT [facility] 2023-09-05 06:55:00 [facility] ([facility]) EMERGENCY PROVIDER REPORT REPORT#:[id number] REPORT STATUS: Signed DATE:09/05/23 TIME: 0655 PATIENT: LACY SMITH UNIT #: [id number] ROOM/BED: AGE: 28 SEX: M PCP PHYS: No Primary or Family Physician SERVICE DT: AUTHOR: Aicha Mathur REAL ESTATE BROKER * ALL edits or amendments must be made on the electronic/computer document * Provider in Triage - Adult Provider in Triage Initial Greet Date/Time 09/05/23 0650 Greet Note I have greeted and performed a focused rapid initial assessment of this patient. A comprehensive ED assessment and evaluation of the patient, analysis of all test results, and completion of the medical decision-making process will be conducted by additional ED providers. HPI Chief Complaint Chest pain PE General/Const No acute distress Respiratory/Chest No respiratory distress MSE Not Complete The medical screening exam is not complete. Further evaluation and/or treatment is required. The patient will be re-directed to the emergency department. PMH-Provider in Triage Stated Complaint CHEST PAIN Allergies Coded Allergies: No Known Allergies (09/05/23) Home Medications Active Scripts MECLIZINE 25 MG PO TID PRN PRN VERTIGO/DIZZINESS MECLIZINE 25 MG PO TID PRN PRN VERTIGO/DIZZINESS #60 TABS Prov: 05/23/23 AMOXICILLIN (AMOXIL) 875 MG PO Q12HR 7 Days #14 TABS Prov: 12/07/22 hydrOXYzine HCL (ATARAX) 50 MG PO TID PRN PRN ANXIETY hydrOXYzine HCL (ATARAX) 50 MG PO TID PRN PRN ANXIETY #20 TABS Prov: 12/04/21 Additional Medical History none Past Surgical History: Reports: Tonsillectomy. Additional Surgical History none Patient History FATHER Condition: Family History: Unknown MOTHER Condition: Family History: Unknown Drug Use Denies recreational drugs Smoking status: Smoking status for patients 13 years old or older: Current every day smoker at 0656 RPT #:[id number] END OF REPORT [facility] 2023-05-23 17:26:00 [facility] ([facility]) EMERGENCY PROVIDER REPORT REPORT#:[id number] REPORT STATUS: Signed DATE:05/23/23 TIME: 1725 PATIENT: LACY SMITH UNIT #: [id number] ROOM/BED: AGE: 28 SEX: M PCP PHYS: No Primary or Family Physician SERVICE AUTHOR: Susie Bonner FOREIGN COLLECTION CLERK-PATIENT FINANCIAL SERVICES MANAGER * ALL edits or amendments must be made on the electronic/computer document * Susie Bonner 05/23/23 1726: HPI-General Illness Free Text HPI Notes Free Text HPI Notes 28-year-old male presents with sharp stabbing pain in the right ear that has been ongoing for 6 months. He states it is intermittent and it came back a couple days ago. He states the pain radiates to his jaw and down the right side of his neck. He also states he has had a headache for several days as well. Denies fever, nausea, vomiting, trauma. General Confirmed Patient Yes Patient Type New patient Initial Greet Date/Time 05/23/23 1239 Presentation Chief Complaint Ear pain Review of Systems ROS Statements All systems rev neg except as marked. Past Medical History - Adult Stated Complaint EAR PAIN Allergies Coded Allergies: No Known Allergies (09/22/16) Home Medications Active Scripts AMOXICILLIN (AMOXIL) 875 MG PO Q12HR 7 Days #14 TABS Prov: 12/07/22 hydrOXYzine HCL (ATARAX) 50 MG PO TID PRN PRN ANXIETY hydrOXYzine HCL (ATARAX) 50 MG PO TID PRN PRN ANXIETY #20 TABS Prov: 12/04/21 Additional Medical History none Past Surgical History: Reports: Tonsillectomy. Additional Surgical History none Drug Use Denies recreational drugs Smoking status for patients 13 years old or older: Current every day smoker Physical Exam Vital Signs Vital Signs First Documented: Result Date Time Pulse Ox 97 05/23 1257 B/P 118/81 05/23 1257 B/P Mean 93 05/23 1257 O2 Delivery Room air 05/23 1257 Temp 98.4 05/23 1257 Pulse 86 05/23 1257 Resp 05/23 1257 Last Documented: Result Date Time Pulse Ox 97 05/23 1257 B/P 118/81 05/23 1257 B/P Mean 93 05/23 1257 O2 Delivery Room air 05/23 1257 Temp 98.4 05/23 1257 Pulse 86 05/23 1257 Resp 18 05/23 1257 Review of Vital Signs Reviewed, Vital signs normal Basic Physical Exam Basic PE GEN: Well appearing/NAD, HEAD: Atraumatic/NC, EYES: PERRL, conj clear, ENT: Membranes moist, NECK: Supple, RESP: No resp distress, CV: Reg rate rhythm, ABD: Soft/non-tender, EXT: No gross abnormality, SKIN: No rashes, warm/ dry, NEURO: alert oriented, NEURO: gross movement NL, PSYCH: NL thought content Physical Exam Ears/Nose/Throat Ears/Nose/Throat Atraumatic, Airway patent, Mucous membranes moist, Pharynx NL, No peritonsillar abscess, No pooling of secretions, No trismus, Nose exam NL , No sinus tenderness, No facial swelling, Gums/dentition NL Right Ear/Mastoid Fluid behind TM clear. Negative: Tympanic membrane red, Tympanic membrane bulging, Tympanic memb perforated, Tympanic memb retracted, Bullous myringitis, Fluid behind TM purulent, External canal red, External frame tender, Ext canal foreign body, Discharge purulent, Discharge bloody, Ext canal cerumen impact, Mastoid area red, Mastoid area tender, Jefferson red, Jefferson tender. Resp/Chest Respiratory/Chest Atraumatic, Breath sounds NL, Breath sounds = bilat Cardiovascular Cardiovascular Heart rate NL, Heart sounds NL Lymphatic Lymphatic No gross adenopathy Re-Evaluation MDM Free Text MDM Notes Free Text MDM Notes Differential diagnosis considered but not limited to: [otitis media, otitis externa, vertigo] MDM data External documents reviewed N/A My EKG interpretation: N/A My CT interpretation: N/A My x-ray interpretation: N/A Labs reviewed by me and are significant for: N/A Decision rules/scores evaluated: N/A Discussed with: N/A Consider admission for: N/A ED course: [28-year-old male presents with sharp stabbing pain in the right ear that has been ongoing for 6 months. He states it is intermittent and it came back a couple days ago. He states the pain radiates to his jaw and down the right side of his neck. He also states he has had a headache for several days as well. Denies fever, nausea, vomiting, trauma. Patient given meclezine and instructed to folow up with an ENT.] Patient is well-appearing, nontoxic, tolerating p.o. Discussed [follow up and discharge] treatment plan, follow-up recommendations as well as return precautions. Patient verbalized understanding and agrees with plan. Shared decision making: Utilized for treatment plan ED Course Medication(s) Ordered Medication(s) Ordered: Central Nervous System Agents Sig/Elena Start time Last Medication Dose Route Stop Time Status Admin Ketorolac 30 MG X1ED STA 05/23 1734 DC 05/23 Tromethamine IM 05/23 1735 1753 Eye, Ear, Nose And Throat (Een Sig/Elena Start time Last Medication Dose Route Stop Time Status Admin Dexamethasone Sodium 8 MG X1ED STA 05/23 1734 DC 05/23 Phosphate IM 05/23 1735 1752 Gastrointestinal Drugs Sig/Elena Start time Last Medication Dose Route Stop Time Status Admin Meclizine HCl 25 MG X1ED STA 05/23 1734 DC 05/23 PO 05/23 1735 1752 Meclizine HCl 25 MG X1ED STA 05/23 1301 DC PO 05/23 1302 Patient Discharge Departure Vital Signs/Condition Vital Signs First Documented: Result Date Time Pulse Ox 97 05/23 1257 B/P 118/81 05/23 1257 B/P Mean 93 05/23 1257 O2 Delivery Room air 05/23 1257 Temp 98.4 05/23 1257 Pulse 86 05/23 1257 Resp 18 05/23 1257 Last Documented: Result Date Time Pulse Ox 97 05/23 1257 B/P 118/81 05/23 1257 B/P Mean 93 05/23 1257 O2 Delivery Room air 05/23 1257 Temp 98.4 05/23 1257 Pulse 86 05/23 1257 Resp 18 05/23 1257 All vital signs available at the time of this entry have been reviewed. Condition Stable Clinical Impression Clinical Impression Primary Impression: Ear pain, right Disposition Decision Discharge )( Discharged to Home Yes )( Time 1729 )( Date 05/23/23 Discharge/Care Plan Counseled Regarding Diagnosis, Need for follow-up, When to return to ED (Auto) Prescriptions Current Visit Scripts MECLIZINE (ANTIVERT) 25 MG PO TID PRN PRN VERTIGO/DIZZINESS MECLIZINE (ANTIVERT) 25 MG PO TID PRN PRN VERTIGO/DIZZINESS #60 TABS Patient Instructions ED Earache, No Infection (Adult) Additional Instructions You are seen today for chronic ear pain in your right ear. You have been prescribed meclizine and instructed to follow-up with a ENT. There is several listed in your discharge paperwork along with a primary care provider. Meclizine can be used for dizziness, nausea, and sometimes ear pain. If symptoms worsen please return to the emergency department. Departure Forms WORK/SCHOOL EXCUSE-CAREGIVER Discharge Note I have spoken with the patient and/or caregivers. I have explained the patient's condition, diagnoses and treatment plan based on the information available to me at this time. I have answered the patient's and/or caregiver's questions and addressed any concerns. The patient and/or caregivers have as good an understanding of the patient's diagnosis, condition and treatment plan as can be expected at this point. The vital signs have been stable. The patient's condition is stable and appropriate for discharge from the emergency department. The patient will pursue further outpatient evaluation with the primary care physician or other designated or consulting physician as outlined in the discharge instructions. The patient and/or caregivers are agreeable to this plan of care and follow-up instructions have been explained in detail. The patient and/or caregivers have received these instructions in written format and have expressed an understanding of the discharge instructions. The patient and/or caregivers are aware that any significant change in condition or worsening of symptoms should prompt an immediate return to this or the closest emergency department or a call to 911. Ryan Cohen 05/30/23 0427: Re-Evaluation MDM Free Text MDM Notes Additional Text Pt seen and eval with midlevel Agree with chart as documented unless noted otherwise by me Pt well appearing, non toxic Taking PO and ambulatory in ED Stable for dispo home with close f/u Pt agreeable with plan Patient Discharge Departure Discharge/Care Plan Referrals Provider Referral: Phyllis Baker MD Address: [address] [facility] [address] [place] [address] Provider Referral: Winnie Peres MD Address: [address] [facility] [address] [place] [address] [facility] Address: [address] [place] [address] Provider Referral: Ziggy Alan MD Address: [address] [place] [address] [address] [place] [address] Provider Referral: Sam Hawley MD Address: [address] [facility] [address] [place] [address] Supervising Physician Note MidLv/Doc Saw Pt 2 The PA/REAL ESTATE BROKER has seen the patient and I have performed this visit along with the involvement of the PA/REAL ESTATE BROKER. I agree with the PA/drilling fluids specialist findings and plan. I have performed all aspects of MDM as documented including: evaluation of the patient/ patient's condition(s), review and analysis of available data, and determination of risk of patient management decisions. at 0400 at 0427 RPT #:[id number] END OF REPORT [facility] 2022-12-07 11:46:00 [facility] ([facility]) EMERGENCY PROVIDER REPORT REPORT#:[id number] REPORT STATUS: Signed DATE:12/07/22 TIME: 1146 PATIENT: LACY SMITH UNIT #: [id number] ROOM/BED: AGE: 27 SEX: M PCP PHYS: No Primary or Family Physician SERVICE AUTHOR: Dejan Terry * ALL edits or amendments must be made on the electronic/computer document * Dejan Terry 12/07/22 1146: HPI-General Illness Free Text HPI Notes Free Text HPI Notes Patient is 27-year-old male presents with right earache. Reports symptoms times few days. Has had multiple earaches in the past. Denies fever, chills, nausea, vomiting, chest pain, shortness of breath. Symptoms aggravated by nothing specific. General Initial Greet Date/Time 12/07/22 1145 Presentation Chief Complaint Ear pain Review of Systems ROS Statements All systems rev neg except as marked. Past Medical History - Adult Stated Complaint EAR INFECTION Allergies Coded Allergies: No Known Allergies (09/22/16) Home Medications Active Scripts hydrOXYzine HCL (ATARAX) 50 MG PO TID PRN PRN ANXIETY hydrOXYzine HCL (ATARAX) 50 MG PO TID PRN PRN ANXIETY #20 TABS Prov: 12/04/21 Past Surgical History: Reports: Tonsillectomy. Physical Exam Vital Signs Vital Signs First Documented: Result Date Time Pulse Ox 96 12/07 1144 B/P 133/86 12/07 1144 B/P Mean 101 12/07 1144 O2 Delivery Room air 12/07 1144 Temp 98.4 12/07 1144 Pulse 83 12/07 1144 Resp 16 12/07 1144 Last Documented: Result Date Time Pulse Ox 96 12/07 1144 B/P 133/86 12/07 1144 B/P Mean 101 12/07 1144 O2 Delivery Room air 12/07 1144 Temp 98.4 12/07 1144 Pulse 83 12/07 1144 Resp 16 12/07 1144 Review of Vital Signs Reviewed Free Text PE Notes Free Text PE Notes General/Const: Awake, Alert, No acute distress, Well appearing, Well developed, Well hydrated, Well nourished, Cooperative, Not toxic appearing Head: Atraumatic, Normocephalic ENT: Left TM dull, intact, small effusion, right TM opaque, bulging, intact with moderate effusion, extremities pink and moist Neck: Atraumatic, Supple Resp/Chest: Breath sounds NL, Breath sounds = bilat, No respiratory distress, No rales, No rhonchi, No wheezing, No retractions, No stridor, No chest tenderness, No chest wall deformity, No crepitus Cardiovascular: Heart rate NL, Regular rhythm, Heart sounds NL, No gallop, No murmurs, No rubs, Cap refill not delayed, Peripheral circulation NL, Pulses = bilaterally, MS: All extremities with Normal range of motion, no gross deformity, no swelling , no pulse deficits MS Back: Atraumatic, No CVA tenderness Skin: Atraumatic, Color NL, No rash, Warm, Dry, Intact, Turgor NL, No swelling Neurologic: Oriented X3, Speech NL, No motor deficits, No sensory deficits Psychiatric: Affect NL, Mood NL Re-Evaluation MDM Free Text MDM Notes Free Text MDM Notes Number and complexity of problems [] Differential diagnosis considered but not limited to: Otitis media MDM data External documents reviewed N/A My EKG interpretation: N/A My CT interpretation: N/A My x-ray interpretation: N/A Labs reviewed by me and are significant for: N/A Decision rules/scores evaluated: N/A Discussed with: N/A Consider admission for: N/A Treatment and disposition: Patient evaluated for earache, found otitis media, plan for outpatient treatment ED course: Patient is well-appearing, nontoxic, tolerating p.o. Discussed treatment plan, follow-up recommendations as well as return precautions. Patient verbalized understanding and agrees with plan. Shared decision making: Utilized for treatment plan Patient Discharge Departure Vital Signs/Condition Vital Signs First Documented: Result Date Time Pulse Ox 96 12/07 1144 B/P 133/86 / 1144 B/P Mean 101 / 1144 O2 Delivery Room air 12/07 1144 Temp 98.4 12/07 1144 Pulse 83 12/07 1144 Resp 16 12/07 1144 Last Documented: Result Date Time Pulse Ox 96 12/07 1144 B/P 133/86 / 1144 B/P Mean 101 / 1144 O2 Delivery Room air 12/07 1144 Temp 98.4 12/07 1144 Pulse 83 12/07 1144 Resp 16 12/07 1144 All vital signs available at the time of this entry have been reviewed. Condition Stable Clinical Impression Clinical Impression Primary Impression: Acute otitis media, right Disposition Decision Discharge )( Discharged to Home Yes )( Time 1147 )( Date 12/07/22 Discharge/Care Plan Counseled Regarding Diagnosis, Prescriptions, Need for follow-up, When to return to ED (Auto) Prescriptions Current Visit Scripts AMOXICILLIN (AMOXIL) 875 MG PO Q12HR 7 Days #14 TABS Patient Instructions ED Otitis Media Adult Additional Instructions Use Flonase 1 spray in each nostril twice daily. Drink plenty of fluids. Medication as prescribed. Take Tylenol or Motrin per bottle instructions as needed for pain. Follow-up with primary care provider in 2 to 3 days. Return to ER for any worsening or concerning symptoms. Discharge Note I have spoken with the patient and/or caregivers. I have explained the patient's condition, diagnoses and treatment plan based on the information available to me at this time. I have answered the patient's and/or caregiver's questions and addressed any concerns. The patient and/or caregivers have as good an understanding of the patient's diagnosis, condition and treatment plan as can be expected at this point. The vital signs have been stable. The patient's condition is stable and appropriate for discharge from the emergency department. The patient will pursue further outpatient evaluation with the primary care physician or other designated or consulting physician as outlined in the discharge instructions. The patient and/or caregivers are agreeable to this plan of care and follow-up instructions have been explained in detail. The patient and/or caregivers have received these instructions in written format and have expressed an understanding of the discharge instructions. The patient and/or caregivers are aware that any significant change in condition or worsening of symptoms should prompt an immediate return to this or the closest emergency department or a call to 911. Jimenez Siu 12/09/22 0939: Patient Discharge Departure Discharge/Care Plan Referrals Resource Referral: [facility] Address: [address] [place] [address] Provider Referral: Ziggy Gutierrez MD Address: [address] [place] [address] [address] [place] [address] Supervising Physician Note MidLv Saw Pt Alone I have reviewed the PA/REAL ESTATE BROKER's note and plan of care. I was available for consultation as needed at all times during the patient's visit in the emergency department. I agree with the clinical impression, plan and disposition. at 1621 at 0939 RPT #:[id number] END OF REPORT [facility] 2021-12-10 21:48:00 [facility] ([facility] or a [facility] of [facility] emergency provider report report#:[id number] report status: signed date:12/10/21 time: 2147 patient: lacy smith unit #: [id number] room/bed: age: 26 sex: m pcp phys: no primary or family physician service dt: 12/10/21 author: mohan tsang np * all edits or amendments must be made on the electronic/computer document * mohan tsang 12/10/212147: hpi-general illness free text hpi notes free text hpi notes 26-year-old male presents to er complaining of a lot of nonradiating chest pain due to anxiety and depression that started 4 hours ago and has gradually worsened. patient reports history of being seen in emergency room for chest pain due to anxiety and was prescribed valium and states "the benzos are what helps my anxiety and takes my chest pain away". patient reports psychiatric appointment next week to address his anxiety and depression. patient reports he smokes cigarettes daily, denies etoh consumption, or illicit drug use. patient denies shortness of breath, nausea, vomiting, diarrhea, cough, numbness or tingling to extremities. patient reports pmhx anxiety and depression, but denies surgical history or consumption of daily prescribed medications. general confirmed patient yes initial greet date/time 12/10/212054 presentation chief complaint cp due to anxiety hx obtained from patient sudden in onset? yes (approx 4 hrs ago) review of systems ros statements all systems rev neg except as marked. free text ros notes free text ros notes constitutional: no fever, fatigue or weight loss. skin: no rash. hent: no congestion, ear pain, or sore throat. eyes: no recent vision problems or eye pain. endocrine: no thyroid problems. no polyuria or polydipsia. cardiovascular: non-radiating chest pain d/t anxiety. denies syncope respiratory: no cough, shortness of breath, congestion, or wheezing. gastrointestinal: no abdominal pain, nausea, vomiting, bloody stools or diarrhea. genitourinary: no dysuria, hematuria, urgency, frequency, or pressure. musculoskeletal: no joint pain or swelling lymphatic: no swollen glands. neurologic: no seizures. no headache, focal weakness or sensory changes. hematologic: no unusual bruising or bleeding. psychiatric: reports depression and anxiety. past medical history - adult stated complaint pui-chest pain-muscle pain-abdominal pain..... allergies coded allergies: no known allergies (09/22/16) home medications active scripts hydroxyzine hcl (atarax) 50 mg po tid prn prn anxiety hydroxyzine hcl (atarax) 50 mg po tid prn prn anxiety #20 tabs prov: 12/04/21 review of nursing notes rev avail, and agree additional medical history none past surgical history: reports: tonsillectomy. additional surgical history none drug use denies recreational drugs physical exam vital signs vital signs first documented: result date time pulse ox 99 12/105 b/p 145/94 12/10 2254 b/p mean 111 12/10 2254 o2 delivery room air 12/10 2254 temp 37.0 12/10 2254 pulse 91 12/10 2254 resp 22 12/10 2254 last documented: result date time pulse ox 99 12/10 2254 b/p 145/94 12/105 b/p mean 111 12/10 2254 o2 delivery room air 12/10 2254 temp 37.0 12/10 2254 pulse 91 12/10 2254 resp 12/10 review of vital signs reviewed, vital signs normal free text pe notes free text pe notes general: no acute distress, non-toxic appearance. head: normal with no signs of head trauma. eyes: perrla, eomi, conjunctiva normal, no discharge. ears: hearing grossly intact. nose: normal. bilateral nares patent. no epistaxis or rhinorrhea throat: oropharynx is normal. no erythema or exudate. neck: normal range of motion, no tenderness, supple, no lymphadenopathy, no adenopathy, no jvd. chest: clear breath sounds bilaterally. no wheezes, rales, or rhonchi. cardiac: regular rate and rhythm. s1 and s2, without murmurs, gallops, or rubs. vascular: no edema. peripheral pulses normal and equal in all extremities. abdomen: normal and soft with no tenderness, no masses or pulsatile masses visualized or palpated. gastrointestinal: bowel sounds normal throughout all quadrants genitourinary: normal, no tenderness lympathtic: no lymphadenopathy noted. musculoskeletal: good range of motion of all major joints. extremities without clubbing, cyanosis or edema. neurological: alert and oriented x 3. no focal sensory or strength deficits. speech normal. follows commands appropriately. psychiatric: patient appears anxious but w/normal affect skin: normal appearance with no rashes or lesions. re-evaluation mdm ed course medication(s) ordered medication(s) ordered: central nervous system agents sig/elena start time last medication dose route stop time status admin diazepam 5 mg x1ed sta 12/10 2224 dc 12/10 po 12/10 2225 225 patient discharge departure vital signs/condition vital signs first documented: result date time pulse ox 99 12/10 2254 b/p 145/94 12/10 2254 b/p mean 111 12/10 2254 o2 delivery room air 12/10 2254 temp 37.0 12/10 2254 pulse 91 12/10 2254 resp 12/10 last documented: result date time pulse ox 99 12/10 2254 b/p 145/94 12/10 2255 b/p mean 111 12/10 2254 o2 delivery room air 12/10 2254 temp 37.0 12/10 2254 pulse 91 12/10 2254 resp 22 12/10 2254 all vital signs available at the time of this entry have been reviewed. clinical impression clinical impression primary impression: anxiety secondary impressions: anxiety attack disposition decision discharge )( discharged to home yes )( time 2228 )( date 12/10/21 discharge/care plan counseled regarding diagnosis, need for follow-up, when to return to ed patient instructions ed panic attack additional instructions please keep your scheduled appointment with psychiatry for next week as informed thank you discharge note i have spoken with the patient and/or caregivers. i have explained the patient's condition, diagnoses and treatment plan based on the information available to me at this time. i have answered the patient's and/or caregiver's questions and addressed any concerns. the patient and/or caregivers have as good an understanding of the patient's diagnosis, condition and treatment plan as can be expected at this point. the vital signs have been stable. the patient's condition is stable and appropriate for discharge from the emergency department. the patient will pursue further outpatient evaluation with the primary care physician or other designated or consulting physician as outlined in the discharge instructions. the patient and/or caregivers are agreeable to this plan of care and follow-up instructions have been explained in detail. the patient and/or caregivers have received these instructions in written format and have expressed an understanding of the discharge instructions. the patient and/or caregivers are aware that any significant change in condition or worsening of symptoms should prompt an immediate return to this or the closest emergency department or a call to [facility]. marshall gutierrez 12/11/21 1837: patient discharge departure discharge/care plan [facility]errals [facility] 1[facility]2 days address: [address] [place] [address] electronically signed by mohan tsang np on 12/11/21 at 1308 electronically signed by marshall gutierrez md on 12/11/21 at 1837 rpt #:[id number] end of report [facility]
[2024-11-21] MEDS ORDERED: hydrOXYzine HCL 25 MG TAB ONE (18:37)
--- NOTE | 2024-11-21 19:05 | RAD REPORT ---
EXAMINATION: TWO VIEW CHEST XR CLINICAL INDICATION: CHEST PAIN TECHNIQUE: 2 views of the chest was performed. COMPARISON: No prior exam. FINDINGS: The lungs are well inflated and clear. The heart is normal in size. No displaced fractures evident. IMPRESSION: No acute or significant abnormalities.
--- NOTE | 2024-11-21 19:17 | ER ---
Nurse's Notes [facility] Name: Yann Gerber Age: 29 yrs Sex: Male : 1995 Arrival Date: 11/21/2024 Time: 16:50 Bed 16 Private MD: Diagnosis: Chest pain, unspecified Presentation: 11/21 17:01 Chief complaint: Patient states: needs medical clearance to check into [facility] aa5 Rehab, pt reported chest tightness "from anxiety". Coronavirus screen: At this time, the client does not indicate any symptoms associated with coronavirus-19. Ebola Screen: Patient denies travel to an Ebola-affected area in the 21 days before illness onset. Initial Sepsis Screen: Does the patient meet any 2 criteria? No. Patient's initial sepsis screen is negative. Does the patient have a suspected source of infection? No. Patient's initial sepsis screen is negative. Risk Assessment: Do you want to hurt yourself or someone else? Patient reports no desire to harm self or others. Onset of symptoms was November 21, 2024. 17:01 Acuity: ELINA 3 aa5 17:01 Method Of Arrival: Ambulatory aa5 Historical: - Allergies: 17:03 No Known Allergies; aa5 - PMHx: 17:03 Depressive disorder; Anxiety; aa5 - PSHx: 17:03 None; aa5 - Immunization history:: Adult Immunizations unknown. - Infectious Disease History:: Denies. - Social history:: Smoking status: Patient reports the use of cigarette tobacco products, Reported history of juuling and/or vaping. Patient uses street drugs, marijuana, Methamphetamine (Meth). Screenin:10 [facility] ED Fall Risk Assessment (Adult) History of falling in the last 3 months, me1 including since admission No falls in past 3 months (0 pts) Confusion or Disorientation No (0 pts) Intoxicated or Sedated No (0 pts) Impaired Gait No (0 pts) Mobility Assist Device Used No (0 pt) Altered Elimination No (0 pt) Score/Fall Risk Level 0 - 2 = Low Risk. Abuse screen: Denies threats or abuse. Nutritional screening: No deficits noted. Tuberculosis screening: No symptoms or risk factors identified. Assessment: 17:10 General: Appears in no apparent distress. Behavior is cooperative, appropriate for age, me1 anxious, Reports needs medical clearance to check into [facility] Rehab, pt reported chest tightness "from anxiety". Pain: Complains of pain in chest Pain does not radiate. Pain currently is 3 out of 10 on a pain scale. Quality of pain is described as tight Pain began gradually, Is continuous. Neuro: Level of Consciousness is awake, alert, obeys commands, Oriented to person, place, time, situation, Appropriate for age. Cardiovascular: Reports chest pain, Patient's skin is warm and dry. Respiratory: Airway is patent Respiratory effort is even, unlabored, Respiratory pattern is regular, symmetrical. GI: No signs and/or symptoms were reported involving the gastrointestinal system. : No signs and/or symptoms were reported regarding the genitourinary system. EENT: No signs and/or symptoms were reported regarding the EENT system. Derm: Skin is intact, is healthy with good turgor, Skin is pink, warm \\T\\ dry. Musculoskeletal: No signs and/or symptoms reported regarding the musculoskeletal system. 19:00 Reassessment: Patient appears in no apparent distress at this time. Patient and/or ss12 family updated on plan of care and expected duration. Pain level reassessed. Patient is alert, oriented x 3, equal unlabored respirations, skin warm/dry/pink. pt refused vitals and want to get informed discharge. MRP made aware. Vital Signs: 17:01 BP 116 / 81; Pulse 84; Resp 16 S; Temp 98.3(O); Pulse Ox 99% on R/A; Weight 63.5 kg aa5 (R); Height 5 ft. 9 in. (R); 18:00 BP 131 / 80; Pulse 109; Resp 19; Pulse Ox 97% ; me1 17:01 Body Mass Index 20.67 (63.50 kg, 175.26 cm) aa5 ED Course: 16:54 Patient arrived in ED. al6 16:54 Galindo Mckeon DO is Attending Physician. ms3 17:00 Arm band placed on. aa5 17:03 Triage completed. aa5 17:10 Patient has correct armband on for positive identification. Bed in low position. Call me1 light in reach. Side rails up X2. Provided Education on: POC. Verbalized understanding.. Client placed on continuous cardiac and pulse oximetry monitoring. NIBP monitoring applied. residential monitor on. Pulse ox on. NIBP on. 17:10 No provider procedures requiring assistance completed. me1 17:15 EKG done, by ED staff, reviewed by Galindo Mckeon DO. aa5 18:01 Chest Pa And Lat (2 Views) XRAY In Process Unspecified. EDMS 18:05 Becky White, RN is Primary Nurse. me1 19:16 Quentin Hercules DO is Referral Physician. ms3 19:23 Patient did not have IV access during this emergency room visit. ss12 Administered Medications: 18:39 Not Given (Patient Refused): [id number] mg PO once me1 Medication: 17:10 VIS not applicable for this client. me1 Outcome: 19:17 Discharge ordered by MD. ms3 19:20 Discharged to home ambulatory, ss12 19:20 Condition: stable 19:20 Discharge instructions given to patient, Instructed on discharge instructions, follow up and referral plans. Demonstrated understanding of instructions, follow-up care, 19:23 Patient left the ED. ss12 Signatures: Dispatcher [employer] EDAR Marylin Rizvi, RN RN aa5 Galindo Mckeon DO DO ms3 Becky White, RN RN me1 Kely Lua al6 Patrica Burciaga RN RN ss12 Corrections: (The following items were deleted from the chart) 17:05 17:01 BP 116 / 81; Pulse 84bpm; Resp 16bpm; Spontaneous; Pulse Ox 99% RA; 63.5 kg aa5 Reported; Height 5 ft. 9 in. Reported; BMI: 20.6; aa5 18:05 17:01 Chief complaint: Patient states: needs medical clearance to check into [facility], pt reported chest tightness "from anxiety" aa5
--- NOTE | 2024-11-21 19:17 | EDPHYS ---
Physician Documentation [facility] Name: Yann Gerber Age: 29 yrs Sex: Male : 1995 Arrival Date: 11/21/2024 Time: 16:50 Bed 16 Private MD: ED Physician Galindo Mckeon HPI: 11/21 17:29 This 29 yrs old Male presents to ER via Ambulatory with complaints of Anxiety. ms3 17:29 29-year-old male with past medical history of depression, anxiety [place] [facility] [place] [place] chest pain. Patient states he has been stranded in [place] and attempting to get into [facility]. Patient states initially he did not have his medications and his mother recently brought his medications to him. In intake today patient noted to them he had some slight chest pain and he was denied admission and told to have his chest pain checked out prior to admission.. Historical: - Allergies: 17:03 No Known Allergies; aa5 - PMHx: 17:03 Depressive disorder; Anxiety; aa5 - PSHx: 17:03 None; aa5 - Immunization history:: Adult Immunizations unknown. - Infectious Disease History:: Denies. - Social history:: Smoking status: Patient reports the use of cigarette tobacco products, Reported history of juuling and/or vaping. Patient uses street drugs, marijuana, Methamphetamine (Meth). ROS: 17:29 Constitutional: Negative for fever, and chills. ms3 17:29 Respiratory: Negative for shortness of breath, cough, wheezing, and pleuritic chest pain, Abdomen/GI: Negative for abdominal pain, nausea, vomiting, diarrhea, and constipation, MS/Extremity: Negative for injury and deformity, Skin: Negative for injury, rash, and discoloration, 17:29 Cardiovascular: Positive for chest pain, Exam: 17:17 ECG was reviewed by the Attending Physician. ms3 17:29 Constitutional: This is a well developed, well nourished patient who is awake, alert, ms3 and in no acute distress. Cardiovascular: Regular rate and rhythm with a normal S1 and S2. No gallops, murmurs, or rubs. Normal PMI, no JVD. No pulse deficits. Respiratory: Lungs have equal breath sounds bilaterally, clear to auscultation and percussion. No rales, rhonchi or wheezes noted. No increased work of breathing, no retractions or nasal flaring. Abdomen/GI: Soft, non-tender, with normal bowel sounds. No distension or tympany. No guarding or rebound. No evidence of tenderness throughout. Skin: Warm, dry with normal turgor. Normal color with no rashes, no lesions, and no evidence of cellulitis. MS/ Extremity: Pulses equal, no cyanosis. Neurovascular intact. Full, normal range of motion. Vital Signs: 17:01 BP 116 / 81; Pulse 84; Resp 16 S; Temp 98.3(O); Pulse Ox 99% on R/A; Weight 63.5 kg aa5 (R); Height 5 ft. 9 in. (R); 18:00 BP 131 / 80; Pulse 109; Resp 19; Pulse Ox 97% ; me1 17:01 Body Mass Index 20.67 (63.50 kg, 175.26 cm) aa5 MDM: 17:04 Medical Screening Exam initiated ms3 17:29 Differential diagnosis: abnormal EKG, acute myocardial infarction, acute pericarditis, ms3 anxiety, coronary artery disease chest wall pain. 19:18 Data reviewed: vital signs, nurses notes, EKG, radiologic studies, plain films, and as ms3 a result, I will discharge patient. I considered the following discharge prescriptions or medication management in the emergency department Medications were administered in the Emergency Department. See MAR. Independent interpretation of the following test(s) in the Emergency Department EKG: See my EKG interpretation above X-Ray: My interpretation is Chest x-ray images reviewed by me did not reveal pneumonia or pneumothorax. Counseling: I had a detailed discussion with the patient and/or guardian regarding the historical points, exam findings, and any diagnostic results supporting the discharge/admit diagnosis, radiology results, the need for outpatient follow up, to return to the emergency department if symptoms worsen or persist or if there are any questions or concerns that arise at home. Special discussion: I discussed with the patient/guardian in detail that at this point there is no indication for admission to the hospital. It is understood, however, that if the symptoms persist or worsen the patient needs to return immediately for re-evaluation. ED course: Discussed EKG and chest x-ray findings with patient. Patient to follow-up with Dr. Hercules in 2 to 3 days. Patient understands agrees with plan. All questions were answered. Return precautions discussed include worsening symptoms, or any other concerns. 11/21 17:04 Order name: Chest Pa And Lat (2 Views) XRAY; Complete Time: 19:12 ms3 11/21 17:04 Order name: EKG; Complete Time: 17:05 ms3 11/21 17:04 Order name: EKG - Nurse/Tech; Complete Time: 17:13 ms3 EC:17 Rate is 91 beats/min. Rhythm is regular. QRS [place] is Normal. AL interval is normal. QRS ms3 interval is normal. QT interval is normal. Clinical impression: Normal ECG. Interpreted by me. Reviewed by me. Administered Medications: 18:39 Not Given (Patient Refused): [id number] mg PO once me1 Disposition Summary: 11/21/24 19:17 Discharge Ordered Notes: Location: Home ms3 Condition: Stable ms3 Diagnosis - Chest pain, unspecified ms3 Followup: ms3 - With: Quentin Hercules DO - When: 2 - 3 days - Reason: Recheck today's complaints Discharge Instructions: - Discharge Summary Sheet ms3 - Nonspecific Chest Pain, Adult ms3 Forms: - Medication Reconciliation Form ms3 - Antibiotic Education ms3 - Prescription Opioid Use ms3 - Patient Portal Instructions ms3 - Leadership Thank You Letter ms3 Signatures: Dispatcher [employer] Marylin Evans, RN RN aa5 Galindo Mckeon DO DO ms3 Becky White RN RN me1
[2024-11-21 21:02] VITALS: TEMP 98.3
[2024-11-21 21:03] VITALS: BP 131/80; O2SAT 97
== END 2024-11-21 19:23 | disposition home or self-care (01) ==
LOC: ER 16:50
DX: R07.9 Chest pain, unspecified (principal); F41.9 Anxiety disorder, unspecified; Z72.0 Tobacco use
CPT/HCPCS: 71046; 93005; 99284